=== PATIENT | female | born 1995 | race Caucasian/White ===

== ENCOUNTER 2016-10-30 00:50 | Emergency (ER) | payer BC, OTHER ==
[2016-10-30 01:49] LABS: APPEARANCE,URINE CLEAR; BILIRUBIN,URINE NEGATIVE (NEGATIVE); GLUCOSE, URINE NEGATIVE (NEGATIVE); KETONES,URINE NEGATIVE (NEGATIVE); LEUKOCYTE ESTERASE,URINE NEGATIVE (NEGATIVE); NITRITE,URINE NEGATIVE (NEGATIVE); PROTEIN,URINE NEGATIVE (NEGATIVE); URINE SPECIFIC GRAVITY 1.004; UROBILINOGEN,URINE NEGATIVE mg/dL (<2.0)
[2016-10-30] MEDS ORDERED: KETOROLAC TROMETHAMINE INJ/PF 30 MG/1 ML SDV IV ONE (01:57)
--- NOTE | 2016-10-30 02:04 | ER Document Report ---
ED GI/ - General Chief Complaint: Vaginal Bleeding Stated Complaint: VAGINAL BLEEDING Time Seen by Provider: 10/30/16 01:45 Mode of Arrival: Ambulatory Information source: Patient Notes: 21-year-old female presents to ED for vaginal bleeding with left pelvic pain she states she's passing clots. He states the bleeding started to have weeks ago left pelvic pain started 1-1/2 week ago but tonight when she was out the pain became much more severe. She has a history of PCOS and she has a ParaGard IUD in place since 2016. TRAVEL OUTSIDE OF THE [place] IN LAST 30 DAYS: No - HPI Patient complains to provider of: Pelvic pain, Vaginal bleeding Onset: Other - 2-1/2 weeks Timing/Duration: Intermittent, Worse Quality of pain: Sharp, Stabbing Severity at maximum: Moderate Severity in ED: Moderate Pain Level: 4 Location: Pelvis - Left Vaginal bleeding (Compared to normal period): Heavier Menstrual period history: Abnormal LMP: 2-1/2 weeks vaginal bleeding Sexual history: IUD Associated symptoms: Other - Vaginal bleeding and pelvic pain left Exacerbated by: Movement Relieved by: Denies Similar symptoms previously: Yes Recently seen / treated by doctor: No - Related Data Allergies/Adverse Reactions: No Known Allergies Allergy (Verified 10/30/16 00:58) Past Medical History - General Information source: Patient - Social History Smoking Status: Current Every Day Smoker Cigarette use (# per day): Yes - half pack a day Chew tobacco use (# tins/day): No Smoking Education Provided: Yes - less than 2 min Frequency of alcohol use: Occasional Drug Abuse: None Occupation: [employer] Lives with: Parents Family History: Arthritis, DM, Hypertension, Malignancy, Thyroid Disfunction Patient has suicidal ideation: No Patient has homicidal ideation: No - Past Medical History Cardiac Medical History: Reports: None Pulmonary Medical History: Reports: None EENT Medical History: Reports: None Neurological Medical History: Reports: None Endocrine Medical History: Reports: None Renal/ Medical History: Reports: Hx Ovarian Cysts Malignancy Medical History: Reports: None GI Medical History: Reports: None Musculoskeltal Medical History: Reports Hx Arthritis, Reports Hx Musculoskeletal Deformity, Reports Hx Musculoskeletal Trauma Skin Medical History: Reports None Psychiatric Medical History: Reports: None Traumatic Medical History: Reports: None Infectious Medical History: Reports: None Past Surgical History: Reports: Hx Orthopedic Surgery - Degenerative disc disease spinal surgery - Immunizations Immunizations up to date: Yes Hx Diphtheria, Pertussis, Tetanus Vaccination: Yes Review of Systems - Review of Systems Constitutional: No symptoms reported EENT: No symptoms reported Cardiovascular: No symptoms reported Respiratory: No symptoms reported Gastrointestinal: No symptoms reported Genitourinary: No symptoms reported Female Genitourinary: Vaginal bleeding, Other - Left pelvic pain Musculoskeletal: No symptoms reported Skin: No symptoms reported Hematologic/Lymphatic: No symptoms reported Neurological/Psychological: No symptoms reported -: Yes All other systems reviewed and negative Physical Exam - Vital signs Vitals: Temp Pulse Resp BP Pulse Ox 98.0 F 105 H 18 144/108 H 99 10/30/16 00:53 10/30/16 00:53 10/30/16 00:53 10/30/16 00:53 10/30/16 00:53 Interpretation: Normal - General General appearance: Appears well, Alert - HEENT Head: Normocephalic, Atraumatic Eyes: Normal Pupils: PERRL - Respiratory Respiratory status: No respiratory distress Chest status: Nontender Breath sounds: Normal Chest palpation: Normal - Cardiovascular Rhythm: Regular Heart sounds: Normal auscultation Murmur: No - Abdominal Inspection: Normal Distension: No distension Bowel sounds: Normal Tenderness: Tender - Left pelvic tenderness Organomegaly: No organomegaly - Back Back: Normal, Nontender - Extremities General upper extremity: Normal inspection, Nontender, Normal color, Normal ROM , Normal temperature General lower extremity: Normal inspection, Nontender, Normal color, Normal ROM , Normal temperature, Normal weight bearing. No: Licha's sign - Neurological Neuro grossly intact: Yes Cognition: Normal Orientation: AAOx4 Anselmo Coma Scale Eye Opening: Spontaneous Anselmo Coma Scale Verbal: Oriented [place] Coma Scale Motor: Obeys Commands Anselmo Coma Scale Total: 15 Speech: Normal Motor strength normal: LUE, RUE, LLE, RLE Sensory: Normal - Psychological Associated symptoms: Normal affect, Normal mood - Skin Skin Temperature: Warm Skin Moisture: Dry Skin Color: Normal Course - Re-evaluation Re-evalutation: 10/30/16 03:53 Discussed ultrasound and labs with patient and written reports given to patient to follow-up with her [employer]. She states she has a [facility] appointment on Saturday at which time she plans to get the IUD removed. 10/30/16 04:24 Temperature 97.8 pulse 82 sat 98% and blood pressure 128/70 on discharge. - Vital Signs Vital signs: Temp Pulse Resp BP Pulse Ox 97.8 F 82 16 128/70 H 98 10/30/16 04:01 10/30/16 04:01 10/30/16 04:01 10/30/16 04:01 10/30/16 04:01 - Laboratory Result Diagrams: 10/30/16 02:25 10/30/16 02:25 Laboratory results interpreted by me: 10/30/16 10/30/16 01:30 02:25 Chloride 109 H Direct Bilirubin 0.5 H AST 51 H Urine Blood MODERATE H - Diagnostic Test Radiology reviewed: Image reviewed, Reports reviewed Discharge - Discharge Clinical Impression: Vaginal bleeding, Pelvic pain Condition: Stable Disposition: HOME, SELF-CARE Instructions: Family Physicians / Practices Additional Instructions: PELVIC PAIN: There are many causes of pain in the pelvic area. The cause could be the tubes, ovaries, uterus, intestines, appendix, pelvic muscles and connective tissue, or the urinary tract. The cause of your pelvic pain is not clear. However, it seems safe to treat you outside the hospital. If the pain sounds like a temporary problem, we sometimes wait to see if it goes away. Other patients may need additional tests, such as pelvic ultrasound or cultures. Conditions may change. Call us or come back for reexamination if any problems occur, such as: (1) Pain that becomes more severe, steady, or becomes concentrated in one specific area. Also, pain that is more severe with movement or coughing. (2) Vomiting that persists or becomes more frequent. (3) Blood in the vomitus, urine, or bowel movements. Blood in the stool may have a tarry or black appearance. (4) Shaking chills or fever greater than 100 degrees. (5) The abdomen becomes more distended or swollen. (6) Bowel movements cease. (7) Heavy vaginal bleeding. VAGINAL BLEEDING: You are having an episode of abnormal bleeding. Causes of abnormal vaginal bleeding can include miscarriage or tubal , tumors such as cancer or benign fibroids, medication effects, or hormone imbalance. Testing can eliminate unsuspected , tumors, or infection as a cause. "Dysfunctional uterine bleeding" is due to hormone imbalance, and is especially common at times when the normal cycle is disturbed -- whether by recent , use of control pills or hormones, or impending menopause. If the bleeding is innocent, most commonly a short course of hormones is given to restore the uterus to normal. Sometimes, the normal menstrual cycle corrects itself naturally. Sometimes , brief hormone therapy, or even a D&C is required. Your physician will advise you. Treatment for anemia may be required if bleeding is severe. You should rest and avoid intercourse until the bleeding is controlled. Call the doctor or return for re-examination if you feel faint, have increasing pain, or have a major increase in the amount of bleeding. NORMAL EXAM AND WORKUP: At this time, except for vaginal bleeding, your examination and workup show no significant abnormality. No significant abnormal physical findings were noted. All laboratory, EKG, and imaging (x-ray, CT scans, ultrasound) studies that were ordered show no significant abnormality. Although your examination and all studies that were ordered showed no significant abnormal finding, there are no examinations and no studies that are 100% accurate. There is always the possibility that some abnormality could exist and not be detected with physical examination or within the limits and capabilities of laboratory and other studies. You should return or follow up as you were instructed on your visit today for further evaluation if your symptoms do not resolve. ORAL NARCOTIC MEDICATION: You have been given a prescription for pain control. This medication is a narcotic. It's best taken with food, as nausea can result if taken on an empty stomach. Don't operate machinery or drive within six hours of taking this medication. Do not combine this medicine with alcohol, or with any medication which can cause sedation (such as cold tablets or sleeping pills) unless you get permission from the physician. Narcotics tend to cause constipation. If possible, drink plenty of fluids and eat a diet high in fiber and fruits. Please be aware that prescription narcotics also have the potential for abuse. People become addicted to these medications because of the general sense of wellbeing that they induce. This feeling along with a significant reduction in tension, anxiety, and aggression provides a stimulating seductive quality to these drugs. Once your pain is under control, we encourage you to discard your unused narcotics. FOLLOW-UP CARE: If you have been referred to a physician for follow-up care, call the physician s office for an appointment as you were instructed or within the next two days. If you experience worsening or a significant change in your symptoms (very heavy bleeding with large clots of blood, passage of tissue, more severe abdominal / pelvic pain or cramping, feeling faint or severe weakness, fever, etc.), notify the physician immediately or return to the Emergency Department at any time for re-evaluation. OBSTETRIC-GYNECOLOGIC ([facility]) [facility] [place]: [facility] [address] [place] [address] [phone] Forms: Elevated Blood Pressure, Smoking Cessation Education
[2016-10-30 02:41] LABS: ABSOLUTE EOSINOPHILS # (AUTO) 0.2 10^3/uL (0.0-0.6); ABSOLUTE LYMPHOCYTES (AUTO) 2.9 10^3/uL (0.5-4.7); ABSOLUTE MONOCYTES (AUTO) 0.6 10^3/uL (0.1-1.4); ABSOLUTE NEUT (AUTO) 6.3 10^3/uL (1.7-8.2); BASOPHILS % (AUTO) 0.5 % (0-2); EOSINOPHILS % (AUTO) 1.7 % (0-6); HEMATOCRIT 40.9 % (36.0-47.0); HEMOGLOBIN 13.8 g/dL (12.0-15.5); HGB HCT DIFFERENCE 0.5; LYMPHOCYTES % (AUTO) 29.1 % (13-45); MEAN CORPUSCULAR HEMOGLOBIN 30.6 pg (27.0-33.4); MEAN CORPUSCULAR HGB CONC 33.8 g/dL (32.0-36.0); MEAN CORPUSCULAR VOLUME 91 fl (80-97); MONOCYTES % (AUTO) 6.3 % (3-13); RED BLOOD COUNT 4.52 10^6/uL (3.72-5.28); RED CELL DISTRIBUTION WIDTH 13.3 % (11.5-14.0); SEGMENTED NEUTROPHILS % (AUTO) 62.4 % (42-78); WHITE BLOOD COUNT 10.1 10^3/uL (4.0-10.5)
[2016-10-30 02:49] LABS: ALANINE AMINOTRANSFERASE 30 U/L (9-52); ALBUMIN 4.2 g/dL (3.5-5.0); ALKALINE PHOSPHATASE 58 U/L (38-126); ANION GAP 11 (5-19); ASPARTATE AMINO TRANSFERASE 51 U/L (14-36); BILIRUBIN,DIRECT 0.5 mg/dL (0.0-0.4); BILIRUBIN,TOTAL 0.6 mg/dL (0.2-1.3); BLOOD UREA NITROGEN 13 mg/dL (7-20); CALCIUM 9.4 mg/dL (8.4-10.2); CARBON DIOXIDE 23 mmol/L (22-30); CHLORIDE 109 mmol/L (98-107); CREATININE RESULT 0.72 mg/dL (0.52-1.25); GLUCOSE 100 mg/dL (75-110); POTASSIUM 4.2 mmol/L (3.6-5.0); SODIUM 143.4 mmol/L (137-145); TOTAL PROTEIN 7.9 g/dL (6.3-8.2)
[2016-10-30] MEDS ORDERED: HYDROCODONE/ACETAMINOPHEN 5-325 MG TABLET PO ONE (03:54)
[2016-10-30 05:25] VITALS: BP 107/60
== END 2016-10-30 04:30 | disposition home or self-care (01) ==
LOC: ER 00:50
DX: N93.8 Other specified abnormal uterine and vaginal bleeding (principal); R10.2 Pelvic and perineal pain; F17.210 Nicotine dependence, cigarettes, uncomplicated; Z97.5 Presence of (intrauterine) contraceptive device
CPT/HCPCS: 99284; 96374; 36415; 84703; 85025; 80053; 81001; 76830; J1885

== ENCOUNTER 2016-12-27 21:10 | Emergency (ER) | payer OTHER ==
[2016-12-27 22:17] LABS: ABSOLUTE BASOPHILS # (AUTO) 0.1 10^3/uL (0.0-0.2); ABSOLUTE EOSINOPHILS # (AUTO) 0.1 10^3/uL (0.0-0.6); ABSOLUTE LYMPHOCYTES (AUTO) 3.9 10^3/uL (0.5-4.7); ABSOLUTE MONOCYTES (AUTO) 0.4 10^3/uL (0.1-1.4); ABSOLUTE NEUT (AUTO) 7.5 10^3/uL (1.7-8.2); BASOPHILS % (AUTO) 0.5 % (0-2); EOSINOPHILS % (AUTO) 0.8 % (0-6); HEMATOCRIT 43.9 % (36.0-47.0); HGB HCT DIFFERENCE -1.9; LYMPHOCYTES % (AUTO) 32.4 % (13-45); MEAN CORPUSCULAR HGB CONC 31.9 g/dL (32.0-36.0); MEAN CORPUSCULAR VOLUME 91 fl (80-97); MONOCYTES % (AUTO) 3.7 % (3-13); RED BLOOD COUNT 4.83 10^6/uL (3.72-5.28); SEGMENTED NEUTROPHILS % (AUTO) 62.6 % (42-78)
--- NOTE | 2016-12-27 22:32 | ER Document Report ---
ED Psych Disorder / Suicide <MARYCLINT - Last Filed: 12/27/16 22:47> - General Mode of Arrival: Ambulatory Information source: Patient TRAVEL OUTSIDE OF THE [place] IN LAST 30 DAYS: No - HPI Patient complains to provider of: Self injury - cutting Onset: This evening - Refer to HPI notes <BRADY GARLAND - Last Filed: 12/27/16 23:31> - General Chief Complaint: Psych Problem Stated Complaint: PSYCH EVALUATION Time Seen by Provider: 12/27/16 22:21 Notes: Patient is a 21 year old female presenting to the emergency department for a psychiatric evaluation. Patient cut herself on her left shoulder while in the shower this evening. Patient states she has cut herself in the past about 10 years ago. Patient states she does this from pain to "feel better." Patient states things have been adding up but does not go into detail as to what her depression is about. Patient states she has had feelings of depression waxing and waning for a few years. Patient states her depression is better when she is around people and it gets worse when she is alone. Patient states she last saw someone from a mental health about 9 years ago. Patient takes control, smokes, and drinks EtOH. Patient states her last tetanus vaccination was about 1 year ago. Patient has no known allergies. (BRADY GARLAND) - Related Data Allergies/Adverse Reactions: No Known Allergies Allergy (Verified 10/30/16 00:58) Past Medical History - General Information source: Patient - Social History Smoking Status: Current Every Day Smoker Cigarette use (# per day): Yes - 1/2 ppd Frequency of alcohol use: Occasional - 2-3 times per week Family History: Arthritis, DM, Hypertension, Malignancy, Thyroid Disfunction Patient has suicidal ideation: Yes - delibrate cutting Patient has homicidal ideation: No Renal/ Medical History: Reports: Hx Ovarian Cysts Musculoskeltal Medical History: Reports Hx Arthritis, Reports Hx Musculoskeletal Deformity, Reports Hx Musculoskeletal Trauma Psychiatric Medical History: Reports: Hx Depression Past Surgical History: Reports: Hx Orthopedic Surgery - Degenerative disc disease spinal surgery, discectomy - Immunizations Immunizations up to date: Yes Hx Diphtheria, Pertussis, Tetanus Vaccination: Yes <BRADY GARLAND - Last Filed: 12/27/16 23:31> Review of Systems - Review of Systems Constitutional: No symptoms reported EENT: No symptoms reported Cardiovascular: No symptoms reported Respiratory: No symptoms reported Gastrointestinal: No symptoms reported Genitourinary: No symptoms reported Female Genitourinary: No symptoms reported Musculoskeletal: No symptoms reported Skin: See HPI Hematologic/Lymphatic: No symptoms reported Neurological/Psychological: See HPI -: Yes All other systems reviewed and negative <BRADY GARLAND - Last Filed: 12/27/16 23:31> Physical Exam <CLINT HERNANDEZ - Last Filed: 12/27/16 22:47> - Vital signs Interpretation: Normal <BRADY GARLAND - Last Filed: 12/27/16 23:31> - Vital signs Vitals: Temp Pulse Resp BP Pulse Ox 98.5 F 121 H 16 140/94 H 100 12/27/16 21:22 12/27/16 21:22 12/27/16 21:22 12/27/16 21:22 12/27/16 21:22 - Notes Notes: GENERAL: Alert, interacts well. No acute distress. HEAD: Normocephalic, atraumatic. EYES: Pupils equal, round, and reactive to light. Extraocular movements intact. ENT: Oral mucosa moist, tongue midline. NECK: Full range of motion. Supple. Trachea midline. LUNGS: Clear to auscultation bilaterally, no wheezes, rales, or rhonchi. No respiratory distress. HEART: Regular rate and rhythm. No murmurs, gallops, or rubs. ABDOMEN: Soft, non-tender. Non-distended. Bowel sounds present in all 4 quadrants. EXTREMITIES: Moves all 4 extremities spontaneously. No edema. NEUROLOGICAL: Alert and oriented x3. Normal speech. PSYCH: Normal affect, depressed. SKIN: Warm, dry, normal turgor. Several superficial 3-4 cm lacerations over the left shoulder. (GILLREGINABRADY) Course - Laboratory Result Diagrams: 12/27/16 21:40 12/27/16 21:40 - EKG Interpretation by Nc EKG shows normal: Sinus rhythm, [place], Intervals, QRS Complexes, ST-T Waves Rate: Normal - 97 Rhythm: NSR <CLINT HERNANDEZ - Last Filed: 12/27/16 22:47> - Laboratory Result Diagrams: 12/27/16 21:40 12/27/16 21:40 <GILLBRADY - Last Filed: 12/27/16 23:31> - Vital Signs Vital signs: Temp Pulse Resp BP Pulse Ox 98.5 F 121 H 16 140/94 H 100 12/27/16 21:22 12/27/16 21:22 12/27/16 21:22 12/27/16 21:22 12/27/16 21:22 - Laboratory Laboratory results interpreted by me: 12/27/16 12/27/16 21:40 21:40 WBC 12.0 H MCHC 31.9 L Sodium 146.1 H Chloride 110 H Carbon Dioxide 20 L Total Protein 8.5 H Salicylates < 1.0 L Acetaminophen < 10 L Discharge <CLINT HERNANDEZ - Last Filed: 12/27/16 22:47> <BRADY GARLAND - Last Filed: 12/27/16 23:31> - Discharge Clinical Impression: Suicidal ideations, Deliberate self-cutting Alcohol intoxication Qualifiers: Complication of substance-induced condition: uncomplicated Qualified Code(s): F10.920 - Alcohol use, unspecified with intoxication, uncomplicated Scribe Documentation - Scribe Written by Scribe:: Julianne Pablo 12/27/2016 23:07 acting as scribe for :: Mary <BRADY GARLAND - Last Filed: 12/27/16 23:31>
[2016-12-27 22:34] LABS: ALANINE AMINOTRANSFERASE 30 U/L (9-52); ALBUMIN 4.6 g/dL (3.5-5.0); ALCOHOL 204 mg/dL (NONE DETECTED); ALKALINE PHOSPHATASE 67 U/L (38-126); ANION GAP 16 (5-19); ASPARTATE AMINO TRANSFERASE 22 U/L (14-36); BILIRUBIN,DIRECT 0.3 mg/dL (0.0-0.4); BILIRUBIN,TOTAL 0.4 mg/dL (0.2-1.3); BLOOD UREA NITROGEN 9 mg/dL (7-20); CALCIUM 9.6 mg/dL (8.4-10.2); CARBON DIOXIDE 20 mmol/L (22-30); CHLORIDE 110 mmol/L (98-107); GLUCOSE 90 mg/dL (75-110); POTASSIUM 4.1 mmol/L (3.6-5.0); SODIUM 146.1 mmol/L (137-145); TOTAL PROTEIN 8.5 g/dL (6.3-8.2)
[2016-12-27 22:45] LABS: APPEARANCE,URINE CLEAR; BILIRUBIN,URINE NEGATIVE (NEGATIVE); GLUCOSE, URINE NEGATIVE (NEGATIVE); KETONES,URINE NEGATIVE (NEGATIVE); LEUKOCYTE ESTERASE,URINE NEGATIVE (NEGATIVE); NITRITE,URINE NEGATIVE (NEGATIVE); PROTEIN,URINE NEGATIVE (NEGATIVE); URINE SPECIFIC GRAVITY 1.002; UROBILINOGEN,URINE NEGATIVE mg/dL (<2.0)
[2016-12-27 23:00] LABS: URINE BARBITURATES SCREEN NEGATIVE; URINE METHADONE SCREEN NEGATIVE; URINE OPIATES LOW NEGATIVE; URINE PHENCYCLIDINE SCREEN NEGATIVE
[2016-12-28] MEDS ORDERED: HYDROXYZINE PAMOATE 50 MG CAPSULE PO ONE (01:38)
--- NOTE | 2016-12-28 08:17 | EKG REPORT ---
SEVERITY:- NORMAL ECG - SINUS RHYTHM : Confirmed by: Himanshu Dempsey MD 28-Dec-2016 08:17:06
--- NOTE | 2016-12-28 08:55 | ER Document Report ---
ED Psych Disorder / Suicide - General Chief Complaint: Psych Problem Stated Complaint: PSYCH EVALUATION Time Seen by Provider: 12/27/16 22:21 Mode of Arrival: Ambulatory Information source: Patient TRAVEL OUTSIDE OF THE [place] IN LAST 30 DAYS: No - HPI Patient complains to provider of: Self injury - Cutting Injury to: Shoulder - Left- several superficial cuts Normal mood: Yes Associated symptoms: Normal affect, Normal mood Notes: Patient is a 21 year old female presenting to the emergency department for a psychiatric evaluation. Patient cut herself on her left shoulder while in the shower this evening. Patient states she has cut herself in the past about 10 years ago. Patient states she does this from pain to "feel better." Patient states things have been adding up but does not go into detail as to what her depression is about. Patient states she has had feelings of depression waxing and waning for a few years. Patient states her depression is better when she is around people and it gets worse when she is alone. Patient states she last saw someone from a mental health about 9 years ago. Patient disclosed that she has passive suicidal ideation with no plan. She continues states that she does suffer from anxiety and depression with the depression coming and going. Patient states that she has a history of cutting that started about when she was 12 years old. Patient stated that she used to cut her wrist however it was never enough to leave a scar. Clinician observes no lau on his arms. Patient disclosed last night she cut her shoulder; several superficial 3-4 cm lacerations over the left shoulder. She states her sister used to cut her shoulder so she thought she would try it. She disclosed the cut there because she figured no one would see it. Patient states that it was supposed to release the stress however this time it did not work. Patient does admit to drinking last night disclosing that she drinks once or twice a week however only gets drunk once every 1-2 weeks. Disclosed that she would like information on local mental health outpatient providers. Patient just moved to [place] approximately a week and half ago; she lived in [place] for 10 years previously. Lives with roommates and patient's family lives in [place]. Patient is alert and orientated to person place time and circumstance. Mood is euthymic with congruent affect. Patient endorses passive suicidal ideation no plan means or intent. Patient denies homicidal ideation. Patient denies auditory visual hallucinations; patient is not demonstrating any behavior congruent with responding to internal stimuli. No delusions are noted. Thought processes organized and linear. Conversational speech was within normal rate tone and prosody. Eye contact was well-maintained. Intellectual abilities appear to be within average range. Attention and concentration are good. Insight, judgment, impulse control are fair. 311 (F32.9) unspecified depressive disorder per history provided by patient 300.00 (F41.9) unspecified anxiety disorder per history provided by patient V15.59 (Z91.5) personal history of self-harm; cutting 291.9 (F10.99) unspecified alcohol related disorder Impression\\plan: Patient is considered psychiatrically clear for discharge. Patient does not meet IVC criteria per [place] GS 122C. Patient endorses passive suicidal ideation with no plan means or intent. Patient has a history of cutting with the intent of releasing motion not suicide. Patient chose shoulder to cut because she she thought it would not be noticeable since her sister always choose to cut there. Patient endorses drinking alcohol approximately 1-2 times a week and getting drunk approximately once every 1-2 weeks. Clinician conducted psychoeducation on substance abuse. Clinician provided resources for outpatient providers. Dr. Rendon was consulted and the care and management of this patient; attending physician is in agreement with recommendations and disposition. - Related Data Allergies/Adverse Reactions: No Known Allergies Allergy (Verified 10/30/16 00:58) Past Medical History - General Information source: Patient - Social History Smoking Status: Current Every Day Smoker Cigarette use (# per day): Yes - 1/2 ppd Chew tobacco use (# tins/day): No Frequency of alcohol use: Occasional - 2-3 times per week Drug Abuse: None Family History: Arthritis, DM, Hypertension, Malignancy, Thyroid Disfunction Patient has suicidal ideation: Yes - delibrate cutting Patient has homicidal ideation: No Renal/ Medical History: Reports: Hx Ovarian Cysts. Denies: Hx Peritoneal Dialysis Musculoskeltal Medical History: Reports Hx Arthritis, Reports Hx Musculoskeletal Deformity, Reports Hx Musculoskeletal Trauma Psychiatric Medical History: Reports: Hx Depression Past Surgical History: Reports: Hx Orthopedic Surgery - Degenerative disc disease spinal surgery, discectomy - Immunizations Immunizations up to date: Yes Hx Diphtheria, Pertussis, Tetanus Vaccination: Yes Physical Exam - Vital signs Vitals: Temp Pulse Resp BP Pulse Ox 98.5 F 121 H 16 140/94 H 100 07/06/17 21:22 12/27/16 21:22 12/27/16 21:22 12/27/16 21:22 12/27/16 21:22 Course - Vital Signs Vital signs: Temp Pulse Resp BP Pulse Ox 98.5 F 121 H 16 140/94 H 100 12/27/16 21:22 12/27/16 21:22 12/27/16 21:22 12/27/16 21:22 12/27/16 21:22 - Laboratory Result Diagrams: 12/27/16 21:40 12/27/16 21:40 Laboratory results interpreted by me: 12/27/16 12/27/16 21:40 21:40 WBC 12.0 H MCHC 31.9 L Sodium 146.1 H Chloride 110 H Carbon Dioxide 20 L Total Protein 8.5 H Salicylates < 1.0 L Acetaminophen < 10 L Discharge - Discharge Clinical Impression: Suicidal ideations, Deliberate self-cutting Alcohol intoxication Qualifiers: Complication of substance-induced condition: uncomplicated Qualified Code(s): F10.920 - Alcohol use, unspecified with intoxication, uncomplicated Condition: Stable Disposition: HOME, SELF-CARE Additional Instructions: DEPRESSION: Your evaluation reveals that you have mental depression. While symptoms may be vague, they often include disturbance of sleep, fatigue, loss of appetite , and general loss of interest in life. While depression may be a side effect of drugs, or a reaction to a major change in your life, many cases have no known cause. If depression is acute, and related to a major loss in your life, you can expect it to clear completely with time. If you have been depressed a long time , are prone to repeated bouts of depression or low mood, or have been thinking of suicide, get help. Depression can be treated with anti-depressant medication and counselling. Long-term depression will often take a few weeks to clear, even with appropriate medication. Follow-up care is important. SUICIDAL IDEATION: Suicidal ideation is a common medical term for thoughts about suicide, which may be as detailed as a formulated plan, without the suicidal act itself. Although most people who undergo suicidal ideation do not commit suicide, some go on to make suicide attempts. The range of suicidal ideation varies greatly from fleeting to detailed planning, role playing, and unsuccessful attempts. While thoughts about suicide are common, most people do not carry out serious actions to commit suicide. Based upon your evaluation and discussion with you, we do not believe you are currently at risk to act upon your thoughts of suicide. You have agreed to return to the Emergency Department, at any time , if you feel inclined to act upon your suicidal thoughts. FOLLOW-UP CARE: Please follow-up with outpatient mental health provider, [facility], within 3-5 days for mental health treatment. If you experience worsening or a significant change in your symptoms, notify the physician immediately or return to the Emergency Department at any time for re-evaluation. Referrals: [facility] [Other] - Follow up in 3-5 days
--- NOTE | 2016-12-28 09:19 | ER Document Report ---
Doctor's Note Notes: 12/28/16 09:18 12/28/16 09:25 I have seen the patient this morning, reviewed the chart discussed the case and plan with the psychiatric lpn. She is resting comfortably and easily arousable. Patient states she is feeling better and would like to go home and have outpatient follow-up. She denies any suicidal ideations to me at this time. Repeat vital signs revealed a blood pressure of 105/59 with a pulse of 99 and a respiratory rate of 18. The patient is medically stable for discharge
[2016-12-28 09:20] VITALS: BP 105/59
== END 2016-12-28 09:35 | disposition home or self-care (01) ==
LOC: ER 21:10
DX: M25.512 Pain in left shoulder (principal); T14.8 Other injury of unspecified body region; F10.920 Alcohol use, unspecified with intoxication, uncomplicated; F32.9 Major depressive disorder, single episode, unspecified; F41.9 Anxiety disorder, unspecified; Z91.5 Personal history of self-harm; F10.99 Alcohol use, unspecified with unspecified alcohol-induced disorder; R45.851 Suicidal ideations; X83.8XXA Intentional self-harm by other specified means, initial encounter; F17.210 Nicotine dependence, cigarettes, uncomplicated
CPT/HCPCS: 36415; 80053; 80307; 81001; 85025; 93005; 93010; 99284

== ENCOUNTER 2019-06-13 21:51 | Emergency (ER) | payer SELFPAY ==
[2019-06-13] MEDS ORDERED: IPRATROPIUM/ALBUTEROL 0.5-2.5 MG/3 ML AMPUL NEB ONE ×2 (22:09→23:07)
[2019-06-13 22:43] LABS: HEMATOCRIT 39.6 % (36.0-47.0); HEMOGLOBIN 13.6 g/dL (12.0-15.5); MEAN CORPUSCULAR HEMOGLOBIN 30.2 pg (27.0-33.4); MEAN CORPUSCULAR HGB CONC 34.4 g/dL (32.0-36.0); MEAN CORPUSCULAR VOLUME 88 fl (80-97); PLATELET COUNT 288 10^3/uL (150-450); RED CELL DISTRIBUTION WIDTH 12.5 % (11.5-14.0); WHITE BLOOD COUNT 22.3 10^3/uL (4.0-10.5)
[2019-06-13 23:01] LABS: ALBUMIN 4.2 g/dL (3.5-5.0); ALKALINE PHOSPHATASE 90 U/L (38-126); ANION GAP 12 (5-19); ASPARTATE AMINO TRANSFERASE 22 U/L (14-36); BILIRUBIN,DIRECT 0.2 mg/dL (0.0-0.4); BILIRUBIN,TOTAL 0.7 mg/dL (0.2-1.3); BLOOD UREA NITROGEN 10 mg/dL (7-20); CALCIUM 9.5 mg/dL (8.4-10.2); CARBON DIOXIDE 21 mmol/L (22-30); CHLORIDE 104 mmol/L (98-107); GLUCOSE 124 mg/dL (75-110); POTASSIUM 4.2 mmol/L (3.6-5.0); TOTAL PROTEIN 7.7 g/dL (6.3-8.2)
[2019-06-13 23:05] LABS: ABSOLUTE LYMPHOCYTES# (MANUAL) 2.5 10^3/uL (0.5-4.7); ABSOLUTE MONOCYTES # (MANUAL) 1.1 10^3/uL (0.1-1.4); BAND NEUTROPHILS % (MANUAL) 4 % (3-5); BASOPHILS % (MANUAL) 0 % (0-2); EOSINOPHILS % (MANUAL) 3 % (0-6); LYMPHOCYTES % (MANUAL) 11 % (13-45); MONOCYTES % (MANUAL) 5 % (3-13); SEGMENTED NEUTROPHILS % (MAN) 77 % (42-78); TOTAL CELLS COUNTED 100
[2019-06-13 23:06] LABS: PLATELET COMMENT ADEQUATE; RBC MORPHOLOGY COMMENT NORMO-CYTIC/CHROMIC
[2019-06-13] MEDS ORDERED: METHYLPREDNISOLONE INJ 125 MG/2 ML SDV IV ONE (23:07)
[2019-06-13] MEDS ORDERED: NORMAL SALINE 1000 ML 1,000 ML IV ONE (23:07)
--- NOTE | 2019-06-13 23:09 | RADIOLOGY REPORT (SQ) ---
EXAM DESCRIPTION: XR CHEST 1 VIEW COMPLETED DATE/TME: 06/13/2019 22:32 CLINICAL HISTORY: 24 years, Female, Shortness of breath, congestion, cough COMPARISON: None. NUMBER OF VIEWS: TECHNIQUE: LIMITATIONS: None. FINDINGS: No evidence of pulmonary infiltrate or pleural effusion. The heart and mediastinum are unremarkable. Pulmonary vascularity appears normal. IMPRESSION: No acute finding. copyright 2010 [employer]- All Rights Reserved
--- NOTE | 2019-06-13 23:33 | ER Document Report ---
ED Respiratory Problem - General Chief Complaint: Shortness Of Breath Stated Complaint: TROUBLE BREATHING/CONGESTION Time Seen by Provider: 06/13/19 22:58 Notes: Patient is a 24-year-old female that comes to the emergency department for chief complaint of worsening cough wheezing, shortness of breath over the past 3 days. She denies fever. She states she coughs so hard she vomited earlier. She has coughed up some greenish sputum. She smokes but she denies history of asthma or COPD. She has had bronchitis in the past. She denies any daily prescribed medications. She denies any obvious sick contacts. She has not had a flu vaccine. She denies . TRAVEL OUTSIDE OF THE [place] IN LAST 30 DAYS: No - Related Data Allergies/Adverse Reactions: No Known Allergies Allergy (Verified 10/30/16 00:58) Past Medical History - General Information source: Patient - Social History Smoking Status: Current Every Day Smoker Frequency of alcohol use: None Drug Abuse: None Lives with: Family Family History: Arthritis, DM, Hypertension, Malignancy, Thyroid Disfunction Patient has suicidal ideation: No Patient has homicidal ideation: No Renal/ Medical History: Reports: Hx Ovarian Cysts. Denies: Hx Peritoneal Dialysis Musculoskeletal Medical History: Reports Hx Arthritis, Reports Hx Musculoskeletal Deformity, Reports Hx Musculoskeletal Trauma Psychiatric Medical History: Reports: Hx Depression Past Surgical History: Reports: Hx Orthopedic Surgery - Degenerative disc disease spinal surgery, discectomy - Immunizations Immunizations up to date: Yes Hx Diphtheria, Pertussis, Tetanus Vaccination: Yes Review of Systems - Review of Systems Constitutional: No symptoms reported EENT: No symptoms reported Cardiovascular: No symptoms reported Respiratory: See HPI Gastrointestinal: No symptoms reported Genitourinary: No symptoms reported Female Genitourinary: No symptoms reported Musculoskeletal: No symptoms reported Skin: No symptoms reported Hematologic/Lymphatic: No symptoms reported Neurological/Psychological: No symptoms reported Physical Exam - Vital signs Vitals: Temp Pulse Resp BP Pulse Ox 99.2 F 121 H 22 H 144/100 H 93 06/13/19 21:55 06/13/19 21:55 06/13/19 21:55 06/13/19 21:55 06/13/19 21:55 - Notes Notes: GENERAL: Alert, interacts well. No acute distress. HEAD: Normocephalic, atraumatic. EYES: Pupils equal, round, and reactive to light. Extraocular movements intact. ENT: Oral mucosa moist, tongue midline. Oropharynx unremarkable. Airway patent. Mild congestion but nares patent, nontender sinuses, no nasal septal hematoma, TM's intact. NECK: Full range of motion. Supple. Trachea midline. LUNGS: Mild tachypnea, frequent coughing episodes, expiratory wheezes, slightly decreased breath sounds throughout. No noted rhonchi or rales. No respiratory distress. HEART: Tachycardia, normal rhythm, no murmur ABDOMEN: Soft, non-tender. Non-distended. EXTREMITIES: Moves all 4 extremities spontaneously. No edema, normal radial and dorsalis pedis pulses bilaterally. No cyanosis. BACK: no cervical, thoracic, lumbar midline tenderness. No saddle anesthesia, normal distal neurovascular exam. Moves all extremities in full range of motion. NEUROLOGICAL: Alert and oriented x3. Normal speech. Cranial nerves II through XII grossly intact. PSYCH: Normal affect, normal mood. SKIN: Warm, dry, normal turgor. No rashes or lesions noted. Course - Re-evaluation Re-evalutation: On initial evaluation patient is wheezing, coughing, and she is mildly congested. She is not in respiratory distress and she can speak in full sentences. She is somewhat tachycardic. Patient given duo nebs, Solu-Medrol, IV fluids. Patient reevaluated twice. After the second reevaluation symptoms have completely resolved, lungs clear, patient denies any current symptoms. She still mildly tachycardic but she also received albuterol. Chest x-ray unremarkable, CBC does show leukocytosis at 22,000. I discussed this with patient. She did have coughing episodes to the point that she vomited. Physical exam is unremarkable other than her initial respiratory exam. Nontender abdomen, no nuchal rigidity, she is quite well-appearing. I did discuss with Dr. Ireland. Because of her tachycardia and shortness of breath I did discuss additional work-up including possible d-dimer but patient declines, states she is ready to leave because she feels good now. I feel this is appropriate, based on her evaluation (no lower extremity edema, symptoms of wheezing resolved with duo nebs, no chest pain, no current dyspnea on exertion, etc.) I do have a low suspicion of PE. Patient was ambulated, she had no respiratory difficulties, no hypoxia. She is still mildly tachycardic. Patient provided with medications including coverage for pneumonia with her productive cough and leukocytosis, she is to return if she worsens in any way, discussed smoking cessation with patient states she is already decided she will quit, patient states she will return if she worsens in any way. Well-appearing at time of discharge. - Vital Signs Vital signs: Temp Pulse Resp BP Pulse Ox 99.1 F 121 H 23 H 142/72 H 95 06/14/19 02:03 06/13/19 21:55 06/14/19 02:03 06/14/19 01:28 06/14/19 02:03 - Laboratory Result Diagrams: 06/13/19 22:26 06/13/19 22:26 Laboratory results interpreted by me: 06/13/19 06/13/19 22:26 22:26 WBC 22.3 H Lymphocytes % (Manual) 11 L Abs Neuts (Manual) 18.1 H Absolute Eos (Manual) 0.7 H Sodium 136.6 L Carbon Dioxide 21 L Glucose 124 H Discharge - Discharge Clinical Impression: Productive cough, Wheezing Condition: Stable Disposition: HOME, SELF-CARE Additional Instructions: Your work-up is consistent with bronchitis, or an upper respiratory infection. There is possibly an underlying pneumonia, you are being treated for this as well. Take azithromycin antibiotic as prescribed, take prednisone as prescribed to completion (avoid carbohydrates while taking this or this can cause weight gain). Use the albuterol as provided if needed. Rest. Follow-up with primary care. Stop smoking. Return if you worsen including spiking fever, difficulty breathing, or any other concerning or worsening symptoms. Prescriptions: Prednisone [Deltasone 20 mg Tablet] 3 tab PO DAILY 5 Days #15 tablet Azithromycin [Zithromax 250 mg Tablet] 250 mg PO ASDIR PRN #4 tablet PRN Reason: Forms: Smoking Cessation Education, Return to Work
[2019-06-14] MEDS ORDERED: ALBUTEROL SULFATE HFA (90 MCG/PUFF) 8 GM MDI (1 MDI/ER DISP) IH ONE (02:06)
[2019-06-14 02:07] VITALS: BP 142/72
[2019-06-14] MEDS ORDERED: AZITHROMYCIN 250 MG TABLET PO ONE (02:07)
== END 2019-06-14 02:24 | disposition home or self-care (01) ==
LOC: ER 21:51
DX: R06.2 Wheezing (principal); R05 Cough; R06.02 Shortness of breath; R68.89 Other general symptoms and signs; F17.200 Nicotine dependence, unspecified, uncomplicated
CPT/HCPCS: 94640; 99283; 96361; 96374; 36415; 84703; 85025; 80053; 71045; J2930; J7030; J3490; J7620

== ENCOUNTER 2020-04-13 02:43 | Emergency (ER) | payer SELFPAY ==
--- NOTE | 2020-04-13 03:33 | ER Document Report ---
ED General - General Stated Complaint: POSSIBLE OVERDOSE Time Seen by Provider: 04/13/20 03:27 TRAVEL OUTSIDE OF THE [place] IN LAST 30 DAYS: No - HPI Notes: 25-year-old female presents after intentionally taking too much ibuprofen. Patient states that she took "a lot", then stating "I was just taking it by the mouthful", estimates she took between 4-5 mouthfuls. She had initially reported to nursing that she took 60 tablets of ibuprofen. Patient states is "the regular ibuprofen", further clarified as the [id number] type. She states she did not take a full bottle. Apparently this was done as an attempt to get attention. Patient currently states she is tired, otherwise denies complaints. - Related Data Allergies/Adverse Reactions: No Known Allergies Allergy (Verified 10/30/16 00:58) Past Medical History - General Information source: Patient - Social History Smoking Status: Unknown if Ever Smoked Family History: Arthritis, DM, Hypertension, Malignancy, Thyroid Disfunction Renal/ Medical History: Reports: Hx Ovarian Cysts. Denies: Hx Peritoneal Dialysis Musculoskeletal Medical History: Reports Hx Arthritis, Reports Hx Musculoskeletal Deformity, Reports Hx Musculoskeletal Trauma Psychiatric Medical History: Reports: Hx Depression Past Surgical History: Reports: Hx Orthopedic Surgery - Degenerative disc disease spinal surgery, discectomy - Immunizations Immunizations up to date: Yes Hx Diphtheria, Pertussis, Tetanus Vaccination: Yes Review of Systems - Review of Systems Constitutional: No symptoms reported EENT: No symptoms reported Cardiovascular: No symptoms reported Respiratory: No symptoms reported Gastrointestinal: No symptoms reported Genitourinary: No symptoms reported Female Genitourinary: No symptoms reported Musculoskeletal: No symptoms reported Skin: No symptoms reported Hematologic/Lymphatic: No symptoms reported Neurological/Psychological: See HPI Physical Exam - Vital signs Vitals: Resp Pulse Ox 18 100 04/13/20 03:08 04/13/20 03:08 - General General appearance: Appears well In distress: None Notes: Initially sleeping on exam, arouses to loud voice - HEENT Head: Normocephalic, Atraumatic Extraocular movements intact: Yes Pupils: PERRL - Respiratory Respiratory status: No respiratory distress Breath sounds: Normal - Cardiovascular Rhythm: Regular Heart sounds: Normal auscultation - Abdominal Inspection: Obese Tenderness: Nontender - Extremities General upper extremity: Normal ROM General lower extremity: Normal ROM - Neurological Neuro grossly intact: Yes - Psychological Associated symptoms: Other - Intoxicated - Skin Skin Temperature: Warm Course - Re-evaluation Re-evalutation: 25-year-old female here for alcohol intoxication intentionally taking ibuprofen in excess as a self-harm versus attention getting event. On exam patient is tired appearing, vital signs stable, no gross physical exam abnormalities. She does appear to be intoxicated. Consuming 60 tablets of 200 mg ibuprofen puts her at 12,000 mg consumed, this is below 200 mg/kg, which is 25,200 mg based on her weight of 126 kg, this is not considered to be a toxic dose. Labs resulted, minimal leukocytosis, no acute anemia. Electrolytes within normal limits, creatinine within normal limits. APAP and salicylate negative. Elevated serum alcohol. Patient was signed out to oncoming day team pending psych consultation - Vital Signs Vital signs: Temp Pulse Resp BP Pulse Ox 97.5 F 15 49/27 L 100 04/13/20 03:28 04/13/20 06:01 04/13/20 06:01 04/13/20 05:00 - Laboratory Result Diagrams: 04/13/20 04:45 04/13/20 04:45 Laboratory results interpreted by me: 04/13/20 04/13/20 04:45 04:45 WBC 12.6 H Chloride 111 H Carbon Dioxide 20 L Salicylates < 1.0 L Acetaminophen < 10 L - EKG Interpretation by Me Additional EKG results interpreted by me: EKG is interpreted by me. Sinus tachycardia, rate 104. Narrow QRS, QTC within normal limits. No ST segment changes. Discharge - Discharge Clinical Impression: Alcohol intoxication Qualifiers: Complication of substance-induced condition: uncomplicated Qualified Code(s): F10.920 - Alcohol use, unspecified with intoxication, uncomplicated Ibuprofen overdose Qualifiers: Encounter type: initial encounter Injury intent: intentional self-harm Qualified Code(s): T39.312A - Poisoning by propionic acid derivatives, intentional self-harm, initial encounter Disposition: OTHER
[2020-04-13 04:57] LABS: ABSOLUTE BASOPHILS # (AUTO) 0.1 10^3/uL (0.0-0.2); ABSOLUTE EOSINOPHILS # (AUTO) 0.2 10^3/uL (0.0-0.6); ABSOLUTE MONOCYTES (AUTO) 0.7 10^3/uL (0.1-1.4); ABSOLUTE NEUT (AUTO) 7.7 10^3/uL (1.7-8.2); BASOPHILS % (AUTO) 0.6 % (0-2); EOSINOPHILS % (AUTO) 1.9 % (0-6); HEMATOCRIT 39.6 % (36.0-47.0); HEMOGLOBIN 13.6 g/dL (12.0-15.5); LYMPHOCYTES % (AUTO) 31.3 % (13-45); MEAN CORPUSCULAR HEMOGLOBIN 30.8 pg (27.0-33.4); MEAN CORPUSCULAR HGB CONC 34.2 g/dL (32.0-36.0); MEAN CORPUSCULAR VOLUME 90 fl (80-97); MONOCYTES % (AUTO) 5.3 % (3-13); PLATELET COUNT 305 10^3/uL (150-450); RED BLOOD COUNT 4.41 10^6/uL (3.72-5.28); RED CELL DISTRIBUTION WIDTH 13.2 % (11.5-14.0); SEGMENTED NEUTROPHILS % (AUTO) 60.9 % (42-78); TOTAL CELLS COUNTED % (AUTO) 100 %; WHITE BLOOD COUNT 12.6 10^3/uL (4.0-10.5)
[2020-04-13 05:22] LABS: ALBUMIN 4.1 g/dL (3.5-5.0); ALCOHOL 157 mg/dL (NONE DETECTED); ALKALINE PHOSPHATASE 90 U/L (38-126); ANION GAP 14 (5-19); ASPARTATE AMINO TRANSFERASE 23 U/L (14-36); BILIRUBIN,DIRECT 0.3 mg/dL (0.0-0.4); BILIRUBIN,TOTAL 0.3 mg/dL (0.2-1.3); BLOOD UREA NITROGEN 10 mg/dL (7-20); CALCIUM 9.3 mg/dL (8.4-10.2); CARBON DIOXIDE 20 mmol/L (22-30); CHLORIDE 111 mmol/L (98-107); GLUCOSE 95 mg/dL (75-110); POTASSIUM 4.1 mmol/L (3.6-5.0); TOTAL PROTEIN 7.4 g/dL (6.3-8.2)
[2020-04-13 05:41] LABS: ACETAMINOPHEN < 10 ug/mL (10-30); SALICYLATE < 1.0 mg/dL (2.0-20.0)
[2020-04-13] MEDS ORDERED: ONDANSETRON 4 MG TAB.RAPDIS PO ONE (09:24)
[2020-04-13 09:39] LABS: APPEARANCE,URINE SLIGHTLY-CLOUDY; BILIRUBIN,URINE NEGATIVE (NEGATIVE); COLOR,URINE YELLOW; GLUCOSE, URINE NEGATIVE (NEGATIVE); KETONES,URINE NEGATIVE (NEGATIVE); LEUKOCYTE ESTERASE,URINE TRACE (NEGATIVE); NITRITE,URINE NEGATIVE (NEGATIVE); PROTEIN,URINE NEGATIVE (NEGATIVE); URINE SPECIFIC GRAVITY 1.023; UROBILINOGEN,URINE NEGATIVE mg/dL (<2.0)
[2020-04-13 09:51] LABS: URINE AMPHETAMINES SCREEN NEGATIVE; URINE BARBITURATES SCREEN NEGATIVE; URINE BENZODIAZEPINES SCREEN NEGATIVE; URINE COCAINE SCREEN NEGATIVE; URINE MARIJUANA (THC) SCREEN NEGATIVE; URINE METHADONE SCREEN NEGATIVE; URINE PHENCYCLIDINE SCREEN NEGATIVE
[2020-04-13] MEDS ORDERED: METOCLOPRAMIDE HCL 10 MG TABLET PO ONE (11:12)
--- NOTE | 2020-04-13 15:37 | ER Document Report ---
Doctor's Note Notes: 04/13/20 15:37 Patient reevaluated at this time, stable for discharge.
[2020-04-13 15:54] VITALS: BP 109/68
--- NOTE | 2020-04-13 16:33 | EKG REPORT ---
SEVERITY:- BORDERLINE ECG - SINUS TACHYCARDIA : Confirmed by: Darrian Stuart MD 13-Apr-2020 16:32:20
== END 2020-04-13 15:55 | disposition home or self-care (01) ==
LOC: ER 02:43
DX: T39.312A Poisoning by propionic acid derivatives, intentional self-harm, initial encounter (principal); F10.120 Alcohol abuse with intoxication, uncomplicated; R53.83 Other fatigue; D72.829 Elevated white blood cell count, unspecified; R00.0 Tachycardia, unspecified
CPT/HCPCS: 93005; 99285; 36415; 80307 ×4; 85025; 81025; 80053; 81001; 93010; S0119